=== PATIENT | male | born 1955 ===

== ENCOUNTER 2021-11-01 12:29 | Inpatient (IN) | payer MEDICARE, OTHER ==
[~2021-11-01] VITALS: Ht 149.9 cm; Wt 39.5 kg
[2021-11-01 14:27] LABS: HEMOGLOBIN 7.9 gm/dl (14.0-17.5); RED BLOOD COUNT 2.86 M/UL (4.20-5.50); WHITE BLOOD COUNT 10.3 K/UL (4.5-11.0)
[2021-11-01 14:48] LABS: BUN/CREATININE RATIO 12 (0-10)
--- NOTE | 2021-11-01 18:00 | NUR ---
PHARMACY NOTIFIED OF NEW ADMIT, MED LIST PLACED ON CHART.
[2021-11-02 03:39] LABS: HEMOGLOBIN 7.1 gm/dl (14.0-17.5); WHITE BLOOD COUNT 11.7 K/UL (4.5-11.0)
[2021-11-02 03:40] LABS: RED BLOOD COUNT 2.53 M/UL (4.20-5.50)
[2021-11-02 04:07] LABS: BUN/CREATININE RATIO 14 (0-10)
--- NOTE | 2021-11-02 04:34 | NUR ---
NOTIFIED DR ADORNO OF CRITICAL LACTIC ACID LEVEL. RECIEVED NO NEW ORDERS. WILL CONTINUE TO MONITOR.
[2021-11-02] MEDS ORDERED: ZOLOFT100 MG PO ×2 (09:30→09:31)
[2021-11-02] MEDS ORDERED: DOCU LIQUI50 MG/5 ML PO (09:30)
[2021-11-02] MEDS ORDERED: PHENOBARBITAL64.8 MG PO (09:30)
[2021-11-02] MEDS ORDERED: VITAMIN D3125 MCG PO (09:31)
[2021-11-02] MEDS ORDERED: SENNA8.6 MG PO (09:32)
[2021-11-02] MEDS ORDERED: OMEPRAZOLE40 MG PO (09:32)
[2021-11-02] MEDS ORDERED: CARAFATE1 GM PO (09:33)
[2021-11-02] MEDS ORDERED: ACETAMINOPHEN500 MG PO (09:34)
[2021-11-02] MEDS ORDERED: CALMOSEPTINE OI71 GM TOP (09:38)
[2021-11-02] MEDS ORDERED: BACITRACIN28.4 GM TOP (09:40)
[2021-11-03 04:37] LABS: HEMOGLOBIN 7.8 gm/dl (14.0-17.5); RED BLOOD COUNT 2.73 M/UL (4.20-5.50)
[2021-11-03 04:41] LABS: WHITE BLOOD COUNT 16.9 K/UL (4.5-11.0)
[2021-11-03 05:02] LABS: BUN/CREATININE RATIO 22 (0-10)
[2021-11-04 07:04] LABS: RED BLOOD COUNT 2.57 M/UL (4.20-5.50); WHITE BLOOD COUNT 11.3 K/UL (4.5-11.0)
[2021-11-04 07:05] LABS: HEMOGLOBIN 7.4 gm/dl (14.0-17.5)
[2021-11-04 07:19] LABS: BUN/CREATININE RATIO 21 (0-10)
[2021-11-05 06:05] LABS: BUN/CREATININE RATIO 21 (0-10)
[2021-11-05 06:57] LABS: HEMOGLOBIN 7.7 gm/dl (14.0-17.5); RED BLOOD COUNT 2.72 M/UL (4.20-5.50)
[2021-11-05 07:01] LABS: WHITE BLOOD COUNT 7.8 K/UL (4.5-11.0)
[2021-11-06 06:11] LABS: HEMOGLOBIN 7.9 gm/dl (14.0-17.5); RED BLOOD COUNT 2.83 M/UL (4.20-5.50)
[2021-11-06] MEDS ORDERED: AUGMENTIN 500-500 MG PO (12:13)
--- NOTE | 2021-11-06 16:56 | NUR ---
CALLED AT 1700 TO CONFIRM AMBULANCE TRANSPORTATION FOR PATIENT. TRANSPORTATION HAD BEEN ARRANGED WITH [facility] IN THE AM TO TRANSPORT PATIENT HOME. AMBULANCE SERVICE CONFIRMED THAT THE CALL WAS IN AND THE PATIENT WOULD HAVE TRANSPORTATION HOME WITH THE AMBULANCE SERVICE. NO ETA COULD BE GIVEN AT THIS TIME. WILL CONTINUE TO MONITOR.
== END 2021-11-06 17:58 | disposition home or self-care (01) | DRG 177 ==
LOC: ER1 12:29 → MED SURG 4 17:00
PROVIDERS: Family Medicine; Internal Medicine; ADMIT Internal Medicine
DX: J69.0 Pneumonitis due to inhalation of food and vomit (principal); R53.2 Functional quadriplegia; J96.01 Acute respiratory failure with hypoxia; E87.1 Hypo-osmolality and hyponatremia; J44.1 Chronic obstructive pulmonary disease with (acute) exacerbation; E87.2 Acidosis; N17.9 Acute kidney failure, unspecified; E44.1 Mild protein-calorie malnutrition; Z68.1 Body mass index [BMI] 19.9 or less, adult; Z20.822 Contact with and (suspected) exposure to COVID-19; Z66 Do not resuscitate; D50.9 Iron deficiency anemia, unspecified; G31.84 Mild cognitive impairment of uncertain or unknown etiology; E86.0 Dehydration; K59.00 Constipation, unspecified; L89.152 Pressure ulcer of sacral region, stage 2; F79 Unspecified intellectual disabilities; E83.42 Hypomagnesemia; Z74.01 Bed confinement status; Z79.4 Long term (current) use of insulin; Z79.899 Other long term (current) drug therapy; Z88.0 Allergy status to penicillin
CPT/HCPCS: 36415; 51701; 70450; 71045; 71250; 74230; 80048; 80053; 80202; 81001; 82550; 82553; 82607; 82746; 82962; 83036; 83540; 83550; 83605; 83735; 83880; 84100; 84439; 84443; 84484; 85018; 85025; 85027; 85652; 86140; 86850; 86900; 86901; 86920; 87040; 87070; 87205; 92526; 92610; 92611-GN; 93005; 94640; 94664; 94760; 96374; 97161; 97165; 99285; J0696; J1650; J1756; J2185; J2543; J2920; J3370; J3475; J7070; P9016; U0002